=== PATIENT | male | born 1980 | race Caucasian/White ===

== ENCOUNTER 2017-12-30 08:31 | Emergency (ER) | payer OTHER ==
[~2017-12-30] VITALS: Ht 177.8 cm; Wt 97.7 kg
[~2017-12-30 08:31] MED LIST: AMOXICILLIN500 MG OR; BACTROBAN2 % EX; CIPRO500 MG PO; DEPO-MEDROL80 MG/ML IM; FLEXERIL5 M1 PO; NAPROXEN500 MG OR; ONDANSETRON4 MG OR; SOLU-MEDROL125 MG IM; TRAMADOL HCL50 MG PO; TRIAMCINOLON0.5 % EX; ULTRAM50 M1 OR; ULTRAM50 MG OR
[2017-12-30] MEDS ORDERED: DELTASONE20 MG PO (08:56)
[2017-12-30 09:15] VITALS: BP 142/92
== END 2017-12-30 09:37 | disposition home or self-care (01) | DRG 607 ==
LOC: ED 08:31
DX: L23.7 Allergic contact dermatitis due to plants, except food (principal)

== ENCOUNTER 2020-08-20 08:39 | Emergency (ER) | payer SELFPAY ==
[~2020-08-20] VITALS: Ht 429.3 cm; Wt 97.7 kg
[~2020-08-20 08:39] MED LIST changes: +DELTASONE20 MG PO
[2020-08-20] MEDS ORDERED: CLARITIN10 M1 PO (10:11)
[2020-08-20] MEDS ORDERED: FLONASE AL50 MCG/ACT (10:11)
[2020-08-20] MEDS ORDERED: CEPHALEXIN500 MG PO (10:11)
[2020-08-20 10:13] VITALS: BP 112/61
== END 2020-08-20 10:17 | disposition home or self-care (01) | DRG 153 ==
LOC: ED 08:39
DX: J06.9 Acute upper respiratory infection, unspecified (principal); F17.210 Nicotine dependence, cigarettes, uncomplicated; Z20.822 Contact with and (suspected) exposure to COVID-19